=== PATIENT | female | born 1955 ===

== ENCOUNTER 2018-03-02 20:18 | Emergency (ER) | payer MEDICARE ==
[2018-03-02 20:34] VITALS: BP 144/82; PULSE 103; RESP 22; TEMP 98.4; O2SAT 98
--- NOTE | 2018-03-02 22:12 | C.PDOC ---
History Of Present Illness 63 y/o female presents to the ED with complaints of nausea associated with chills, palpitations, and headache that developed around 6:00pm after returning home from procedure. Patient underwent endoscopy today at 4:00pm at [place]. She denies any vomiting, fever, cough, difficulty breathing, or other associated symptoms. On arrival, patient is still complaining of headache but states the nausea, chills, and palpitations have resolved. Time Seen by Provider: 03/02/18 21:50 Chief Complaint (Nursing): GI Problem History Per: Patient History/Exam Limitations: no limitations Onset/Duration Of Symptoms: Hrs Current Symptoms Are (Timing): Better Past Medical History Reviewed: Historical Data, Nursing Documentation, Vital Signs Vital Signs: Last Vital Signs Temp 98.4 F 03/02/18 20:27 Pulse 103 H 03/02/18 20:27 Resp 22 03/02/18 20:27 BP 144/82 03/02/18 20:27 Pulse Ox 98 03/02/18 20:27 - Medical History PMH: Diabetes, HTN, Hypercholesterolemia, Osteoporosis Denies: Chronic Kidney Disease Surgical History: Endoscopy Family History: States: No Known Family Hx - Social History Hx Alcohol Use: No Hx Substance Use: No - Immunization History Hx Tetanus Toxoid Vaccination: No Hx Influenza Vaccination: No Hx Pneumococcal Vaccination: No Review Of Systems Except As Marked, All Systems Reviewed And Found Negative. Constitutional: Positive for: Chills. Negative for: Fever Eyes: Negative for: Vision Change Cardiovascular: Positive for: Palpitations. Negative for: Chest Pain Respiratory: Negative for: Shortness of Breath Gastrointestinal: Positive for: Nausea. Negative for: Vomiting, Abdominal Pain Neurological: Positive for: Headache. Negative for: Weakness, Numbness, Incoordination, Change in Speech, Dizziness Physical Exam - Physical Exam Appears: Non-toxic, No Acute Distress Skin: Normal Color, Warm, Dry Head: Atraumatic, Normacephalic Eye(s): bilateral: Normal Inspection, PERRL, EOMI Oral Mucosa: Moist Throat: Normal, No Erythema, No Exudate Neck: Normal ROM Chest: Symmetrical Cardiovascular: Rhythm Regular, No Murmur Respiratory: Normal Breath Sounds, No Rales, No Rhonchi, No Wheezing Gastrointestinal/Abdominal: Soft, No Tenderness, No Distention Extremity: Bilateral: Atraumatic, Normal Color And Temperature, Normal ROM Pulses: Left Dorsalis Pedis: Normal, Right Dorsalis Pedis: Normal Neurological/Psych: Oriented x3, Normal Speech Gait: Steady ED Course And Treatment ECG: Interpreted By Me, Viewed By Me ECG Rhythm: Sinus Tachycardia ECG Interpretation: Normal Interpretation Of ECG: no ST elevations or depressions Rate From EC O2 Sat by Pulse Oximetry: 98 (RA) Pulse Ox Interpretation: Normal Medical Decision Making Medical Decision Making: Plan: * EKG * Motrin 600 mg PO * Tylenol 975 mg PO * will monitor in the ED for improvement Disposition Counseled Patient/Family Regarding: Need For Followup - Disposition Disposition: HOME/ ROUTINE Disposition Time: 23:01 Condition: STABLE Additional Instructions: Lenard ma doctor. Forms: Gen Discharge Inst Dutch, [facility] [employer] (Dutch) - POA Present On Arrival: None - Clinical Impression Clinical Impression: Chills (without fever) - Scribe Statement The provider has reviewed the documentation as recorded by the Scribe (Ann Marie Cummins) Provider Attestation: All medical record entries made by the Scribe were at my direction and personally dictated by me. I have reviewed the chart and agree that the record accurately reflects my personal performance of the history, physical exam, medical decision making, and the department course for this patient. I have also personally directed, reviewed, and agree with the discharge instructions and disposition.
--- NOTE | 2018-03-04 12:30 | CARD ---
APPROVED REPORT Date of service: 03/02/2018 EKG Measurement Heart [id number] <Conclusion> Sinus tachycardia Otherwise normal ECG
== END 2018-03-02 23:28 | disposition home or self-care (01) ==
LOC: C.ER 20:18
DX: R68.83 Chills (without fever) (principal)